=== PATIENT | male | born 1990 | race African-American/Black ===

== ENCOUNTER 2018-11-01 14:25 | Emergency (ER) | payer OTHER ==
[~2018-11-01] VITALS: Ht 182.9 cm; Wt 151.9 kg
[2018-11-01] MEDS ORDERED: IBU800 MG PO (15:28)
[2018-11-01] MEDS ORDERED: CYCL10 PO (15:28)
== END 2018-11-01 15:42 | disposition home or self-care (01) ==
LOC: ER 14:25
DX: S16.1XXA Strain of muscle, fascia and tendon at neck level, initial encounter (principal); X58.XXXA Exposure to other specified factors, initial encounter; Z87.891 Personal history of nicotine dependence
CPT/HCPCS: 70360; 87081; 87430; 99283-25